=== PATIENT | female | born 1955 | race Caucasian/White ===

== ENCOUNTER 2022-03-28 12:24 | Outpatient (CLI) | payer MEDICARE, BC ==
[~2022-03-28 12:24] MED LIST: Magnevist 469MG/ML 20 ML VIAL ONE
== END 2022-03-28 12:25 | disposition home or self-care (01) ==
LOC: CSHCT 12:24
PROVIDERS: ATTEND Psychiatry & Neurology Neurology
DX: G50.0 Trigeminal neuralgia (principal)
CPT/HCPCS: 70496; 70553; 82565

== ENCOUNTER 2022-04-26 14:55 | Outpatient (CLI) | payer MEDICARE, BC | END 2022-04-26 14:56 | disposition home or self-care (01) | LOC: CSHMAMMO 14:55 | PROVIDERS: ATTEND Obstetrics & Gynecology | DX: Z12.31 Encounter for screening mammogram for malignant neoplasm of breast (principal); Z13.820 Encounter for screening for osteoporosis; N95.1 Menopausal and female climacteric states | CPT/HCPCS: 77063; 77067; 77080 ==

== ENCOUNTER 2022-10-18 09:16 | Outpatient (CLI) | payer MEDICARE, BC | END 2022-10-18 09:17 | disposition home or self-care (01) | LOC: CSHULT 09:16 | PROVIDERS: ATTEND Psychiatry & Neurology Neurology | DX: I67.2 Cerebral atherosclerosis (principal); G50.0 Trigeminal neuralgia; R42 Dizziness and giddiness | CPT/HCPCS: 93880 ==